=== PATIENT | female | born 1990 | race Caucasian/White ===

== ENCOUNTER 2017-07-16 09:00 | Day surgery (SDC) | payer OTHER ==
[2017-07-16] MEDS ORDERED: LIDOCAINE HCL 2% (20ML MULTI-DOSE VIAL) NR ONE (09:30)
[2017-07-16] MEDS ORDERED: PROPOFOL 20 ML ONE ×3 (09:30)
[2017-07-16 09:43] VITALS: BMI 18.0
[2017-07-16 10:42] VITALS: TEMP 97.5
--- NOTE | 2017-07-16 11:20 | PROC ---
Endoscopy Procedure Endoscopy procedure completed. Please see scanned procedure report.
[2017-07-16 11:32] VITALS: BP 104/60; PULSE 60
--- NOTE | 2017-07-19 12:16 | PATH ---
Surgical Pathology Report Patient Name: DENISE MARTINEZ [facility]. Rec. #: [id number] /Age/Gender: 1990 (Age: 27) / F Account: [id number] Location: U-ENDOSCOPY Taken: 07/16/2017 Received: 07/16/2017 Reported: 07/19/2017 Physicians: Wellington Tejada M.D. Specimen(s) Received A: BX DUODENUM B: BX ANTRUM/BODY C: BX TERMINAL ILEUM D: BX ASCENDING COLON E: BX DESCENDING COLON F: BX SIGMOID COLON G: RECTUM Clinical History Rule out IBD Postoperative diagnosis: Dyspepsia, rule out IBS Final Diagnosis A. DUODENUM, BIOPSY: DUODENAL MUCOSA WITHOUT SIGNIFICANT PATHOLOGIC FINDINGS. B. STOMACH, ANTRUM/BODY, BIOPSY: GASTRIC ANTRAL AND BODY MUCOSA WITH MODERATE CHRONIC GASTRITIS. IMMUNOHISTOCHEMICAL STAIN FOR H. PYLORI IS NEGATIVE. C. TERMINAL ILEUM, BIOPSY: SMALL BOWEL MUCOSA WITHOUT SIGNIFICANT PATHOLOGIC FINDINGS. D. ASCENDING COLON, BIOPSY: COLONIC MUCOSA WITH PROMINENT LYMPHOID AGGREGATE. E. DESCENDING COLON, BIOPSY: COLONIC MUCOSA WITH PROMINENT LYMPHOID AGGREGATE. F. SIGMOID COLON, BIOPSY: COLONIC MUCOSA WITH PROMINENT LYMPHOID AGGREGATE. G. RECTUM, BIOPSY: COLONIC MUCOSA WITH PROMINENT LYMPHOID AGGREGATES. Comment: No acute inflammation, significant architectural distortion, granuloma, and or dysplasia identified. Electronically Signed Ronda López M.D. Gross Description A. Received in formalin, labeled "biopsy duodenum" are 2 bess, irregular portions of soft tissue averaging 0.3 cm. in greatest dimension. The specimens are submitted in toto in one cassette. B. Received in formalin, labeled "biopsy antrum/body" is a bess, irregular portion of soft tissue measuring 0.3 cm. in greatest dimension. The specimen is submitted in toto in one cassette. C. Received in formalin, labeled "biopsy terminal ileum" is a bess, irregular portion of soft tissue measuring 0.4 cm. in greatest dimension. The specimen is submitted in toto in one cassette. D. Received in formalin, labeled "biopsy ascending" are 3 bess, irregular portions of soft tissue ranging from 0.2-0.3 cm. in greatest dimension. The specimens are submitted in toto in one cassette. E. Received in formalin, labeled "biopsy descending colon" is a bess, irregular portion of soft tissue measuring 0.5 cm. in greatest dimension. The specimen is submitted in toto in one cassette. F. Received in formalin, labeled "biopsy sigmoid colon" are 2 bess, irregular portions of soft tissue averaging 0.3 cm. in greatest dimension. The specimens are submitted in toto in one cassette. G. Received in formalin, labeled "biopsy rectum" is a bess, irregular portion of soft tissue measuring 0.4 cm. in greatest dimension. The specimen is submitted in toto in one cassette. 07/16/2017 [facility]07/16/2017
== END 2017-07-16 12:15 | disposition home or self-care (01) ==
LOC: JASU-ENDO 09:00
PROVIDERS: ATTEND Internal Medicine Gastroenterology
PROC: 0DB98ZX Excision of Duodenum, Via Natural or Artificial Opening Endoscopic, Diagnostic (ICD-10-PCS; 2017-07-16)
PROC: 0DB68ZX Excision of Stomach, Via Natural or Artificial Opening Endoscopic, Diagnostic (ICD-10-PCS; 2017-07-16)
PROC: 0DBE8ZX Excision of Large Intestine, Via Natural or Artificial Opening Endoscopic, Diagnostic (ICD-10-PCS; principal; 2017-07-16 09:00)
DX: R19.4 Change in bowel habit (principal); R10.13 Epigastric pain
CPT/HCPCS: 84703; 88305-TC; 88309-TC; 88342-TC